=== PATIENT | female | born 1945 | race Caucasian/White ===

== ENCOUNTER → 2019-05-31 | Outpatient (CLI) | payer BC, MEDICARE ==
[~2019-05-31] MED LIST: ASCO500T9 PO; ASPI-1012 PO; CALC-1038 PO; HYDR-2132 PO; IBAN150T16 PO; MVIT PO
== END | disposition home or self-care (01) ==
LOC: RAH 10:58
PROVIDERS: ATTEND Internal Medicine Gastroenterology
DX: R14.0 Abdominal distension (gaseous) (principal); Z87.891 Personal history of nicotine dependence; M19.90 Unspecified osteoarthritis, unspecified site; Z90.710 Acquired absence of both cervix and uterus; Z98.890 Other specified postprocedural states
CPT/HCPCS: 78264; A9541

== ENCOUNTER → 2021-10-13 | Outpatient (CLI) | payer BC, MEDICARE ==
[~2021-10-13] MED LIST changes: +ASCO500T20 PO; -ASCO500T9 PO
== END | disposition home or self-care (01) ==
LOC: RAH 13:31
PROVIDERS: ATTEND Orthopaedic Surgery
DX: S83.282A Other tear of lateral meniscus, current injury, left knee, initial encounter (principal); M17.12 Unilateral primary osteoarthritis, left knee; X58.XXXA Exposure to other specified factors, initial encounter; Y93.89 Activity, other specified; Y92.89 Other specified places as the place of occurrence of the external cause; Y99.8 Other external cause status
CPT/HCPCS: 73721

== ENCOUNTER 2021-12-30 07:41 | Day surgery (SDC) | payer BC, MEDICARE ==
[2021-12-28 10:03] LABS: BASOPHILS % (AUTO) 0.7 % (0.0-5.0); EOSINOPHILS % (AUTO) 0.6 % (0.0-8.0); HEMATOCRIT 46.1 % (36-48); LYMPHOCYTES % (AUTO) 26.4 % (21.0-51.0); MEAN CORPUSCULAR HGB CONC 32.3 g/dL (32.0-36.0); MONOCYTES % (AUTO) 10.4 % (3.0-13.0); NEUTROPHILS % (AUTO) 61.3 % (40.0-77.0); PLATELET COUNT (AUTO) 326 K/uL (130-400); RED BLOOD CELL COUNT(AUTO) 4.52 MIL/uL (4.00-5.50); RED CELL DISTRIBUTION WIDTH 13.2 % (11.0-15.5); WHITE BLOOD COUNT (AUTO) 9.7 K/uL (4.8-10.8)
[2021-12-28 10:17] LABS: CREATININE 0.6 mg/dL (0.5-1.5); POTASSIUM 4.3 mmol/L (3.5-5.1)
[2021-12-29 12:02] VITALS: BP 170/88
[~2021-12-30] VITALS: Ht 162.6 cm; Wt 55.7 kg
[2021-12-30] VITALS (17 sets, daily range): BP systolic 142–168; BP diastolic 67–88
[~2021-12-30 07:41] MED LIST changes: +AEC81 PO; -ASPI-1012 PO; -CALC-1038 PO; +CEFAZOLIN SODIUM 1 GM VIAL IVP SCH; +FAMO-136 PO; -HYDR-2132 PO; -IBAN150T16 PO; +VITAMIN B12 IM
[2021-12-30] MEDS ORDERED: LACTATED RINGERS 1000ML 1,000 ML IV ONE (08:23)
[2021-12-30] MEDS ORDERED: CEFAZOLIN SODIUM 2 GM VIAL IV ONE (10:40)
[2021-12-30] MEDS ORDERED: LIDOCAINE PF 100MG/5ML (2%) SYRINGE 5ML ONE (10:41)
[2021-12-30] MEDS ORDERED: PROPOFOL 10 MG/ML 20ML VIAL IV ONE (10:41)
[2021-12-30] MEDS ORDERED: FENTANYL CITRATE PF 50 MCG/1 ML 5ML AMP IV ONE (10:42)
[2021-12-30] MEDS ORDERED: DEXAMETHASONE SOD PHOSPHATE 10MG/ML 1ML VIAL ONE (11:01)
[2021-12-30] MEDS ORDERED: ONDANSETRON 4MG INJ ONE (11:01)
[2021-12-30] MEDS ORDERED: ACET-2079 PO (11:58)
[2021-12-30] MEDS ORDERED: CEPH500B PO (11:58)
[2021-12-30] MEDS ORDERED: MELO-106 PO (11:58)
== END 2021-12-30 13:45 | disposition home or self-care (01) ==
LOC: DAH 07:41
PROVIDERS: ATTEND Orthopaedic Surgery
DX: S83.272A Complex tear of lateral meniscus, current injury, left knee, initial encounter (principal); M94.262 Chondromalacia, left knee; M17.12 Unilateral primary osteoarthritis, left knee; K21.9 Gastro-esophageal reflux disease without esophagitis; M81.0 Age-related osteoporosis without current pathological fracture; M19.90 Unspecified osteoarthritis, unspecified site; Z87.891 Personal history of nicotine dependence; Z98.890 Other specified postprocedural states; Z90.710 Acquired absence of both cervix and uterus; Z72.89 Other problems related to lifestyle; Z79.82 Long term (current) use of aspirin; Z79.899 Other long term (current) drug therapy; W19.XXXA Unspecified fall, initial encounter; Y93.89 Activity, other specified; Y92.89 Other specified places as the place of occurrence of the external cause
CPT/HCPCS: 29881; 36415; 80048; 85025; 87635; A4215; A4221; A4222; A4223; A4649; A4663; A6223; A6450; C9803; J0690 ×2; J1100; J2001; J2405; J2704; J3010; J7120

== ENCOUNTER 2022-01-12 14:21 | Observation (INO) | payer BC, MEDICARE ==
[~2022-01-12] VITALS: Ht 157.5 cm; Wt 50.3 kg
[~2022-01-12 14:21] MED LIST changes: +ACET-2079 PO; -CEFAZOLIN SODIUM 1 GM VIAL IVP SCH; +CEPH500B PO; +MELO-106 PO
[2022-01-12] MEDS ORDERED: NITROGLYCERIN 1GM OINT 1 INCH/1GM TD ONE (14:30)
[2022-01-12 14:48] LABS: BASOPHILS % (AUTO) 0.2 % (0.0-5.0); EOSINOPHILS % (AUTO) 0.3 % (0.0-8.0); HEMATOCRIT 43.3 % (36-48); LYMPHOCYTES % (AUTO) 27.2 % (21.0-51.0); MEAN CORPUSCULAR HEMOGLOBIN 33.8 pg (27.0-33.0); MEAN CORPUSCULAR HGB CONC 33.7 g/dL (32.0-36.0); MEAN CORPUSCULAR VOLUME 100.2 fL (79-99); NEUTROPHILS % (AUTO) 61.9 % (40.0-77.0); PLATELET COUNT (AUTO) 343 K/uL (130-400); RED BLOOD CELL COUNT(AUTO) 4.32 MIL/uL (4.00-5.50); WHITE BLOOD COUNT (AUTO) 14.1 K/uL (4.8-10.8)
[2022-01-12 15:00] LABS: CREATININE 0.7 mg/dL (0.5-1.5); POTASSIUM 3.7 mmol/L (3.5-5.1)
[2022-01-12 15:05] LABS: BILIRUBIN,TOTAL 0.7 mg/dL (0.2-1.0); MAGNESIUM 1.9 mg/dL (1.80-2.40); TOTAL PROTEIN, SERUM 7.5 g/dL (6.0-8.3)
[2022-01-12 15:30] LABS: B-TYPE NATRIURETIC PEPTIDE 35 pg/mL (0-100)
[2022-01-12] MEDS ORDERED: ALBUTEROL 0.083% 2.5 MG/3 ML INH IH PRN (16:00)
[2022-01-12] MEDS ORDERED: NITROGLYCERIN 1GM OINT 1 INCH/1GM TD PRN (16:00)
[2022-01-12] MEDS ORDERED: MORPHINE 2 MG SYG ONE (16:09)
[2022-01-12] MEDS: INSULIN HUMULIN R 100 UNIT/ML 3ML SQ SCH ×2 (16:26→21:00)
[2022-01-12] MEDS ORDERED: MORPHINE 2 MG SYG IVP SCH (16:30)
[2022-01-12 17:18] LABS: APPEARANCE,URINE CLEAR (CLEAR); BILIRUBIN,URINE NEGATIVE (NEGATIVE); COLOR,URINE YELLOW (YELLOW); GLUCOSE, URINE (UA) NEGATIVE (NEGATIVE); KETONES,URINE NEGATIVE (NEGATIVE); LEUKOCYTE ESTERASE ,URINE NEGATIVE (NEGATIVE); NITRATE,URINE NEGATIVE (NEGATIVE); OCCULT BLOOD,URINE NEGATIVE (NEGATIVE); PROTEIN,URINE NEGATIVE (NEGATIVE); UROBILINOGEN,URINE 0.2 mg/dL (0.2-1.0)
[2022-01-12] MEDS: ACETAMINOPHEN 325 MG TAB PO PRN (17:18)
[2022-01-12] MEDS ORDERED: HYDROCODONE/ACETAMINOPHEN 5/325 MG TAB PO PRN (23:30)
[2022-01-13 03:40] VITALS: BP 158/88
[2022-01-13] MEDS: INSULIN HUMULIN R 100 UNIT/ML 3ML SQ SCH ×4 (06:40→21:00)
[2022-01-13 07:14] LABS: BASOPHILS % (AUTO) 0.2 % (0.0-5.0); EOSINOPHILS % (AUTO) 0.4 % (0.0-8.0); HEMATOCRIT 36.8 % (36-48); LYMPHOCYTES % (AUTO) 22.9 % (21.0-51.0); MEAN CORPUSCULAR HGB CONC 34.2 g/dL (32.0-36.0); MEAN CORPUSCULAR VOLUME 99.2 fL (79-99); MONOCYTES % (AUTO) 8.9 % (3.0-13.0); NEUTROPHILS % (AUTO) 66.4 % (40.0-77.0); PLATELET COUNT (AUTO) 285 K/uL (130-400); RED BLOOD CELL COUNT(AUTO) 3.71 MIL/uL (4.00-5.50); RED CELL DISTRIBUTION WIDTH 13.2 % (11.0-15.5); WHITE BLOOD COUNT (AUTO) 10.3 K/uL (4.8-10.8)
[2022-01-13 07:29] LABS: CREATININE 0.4 mg/dL (0.5-1.5); MAGNESIUM 1.9 mg/dL (1.80-2.40); PHOSPHORUS 3.4 mg/dL (2.5-4.9); POTASSIUM 3.8 mmol/L (3.5-5.1)
[2022-01-13 07:30] VITALS: BP 170/80
[2022-01-13] MEDS ORDERED: PANTOPRAZOLE 40 MG TAB DR PO SCH (09:00)
[2022-01-13 11:00] VITALS: BP 185/85
[2022-01-13] MEDS: ASPIRIN 81MG CHEW TAB PO SCH (11:29)
[2022-01-13] MEDS: PANTOPRAZOLE 40 MG/VIAL IVP SCH (11:30)
[2022-01-13] MEDS: ENOXAPARIN SODIUM 30 MG/0.3 ML SQ SCH (11:31)
[2022-01-13] MEDS: LISINOPRIL 5 MG TABLET PO SCH (14:24)
[2022-01-13 16:00] VITALS: BP 134/78
[2022-01-13] MEDS ORDERED: IOHEXOL-350 75 ML VIAL IV ONE (16:51)
[2022-01-13] MEDS: ACETAMINOPHEN 325 MG TAB PO PRN ×2 (17:26→21:43)
[2022-01-13 20:00] VITALS: BP 135/73
[2022-01-14] VITALS: BP 122/72
[2022-01-14 04:00] VITALS: BP 130/75
[2022-01-14 05:41] LABS: BASOPHILS % (AUTO) 0.1 % (0.0-5.0); EOSINOPHILS % (AUTO) 0.4 % (0.0-8.0); HEMATOCRIT 37.5 % (36-48); MEAN CORPUSCULAR HEMOGLOBIN 34.1 pg (27.0-33.0); MEAN CORPUSCULAR HGB CONC 33.9 g/dL (32.0-36.0); MEAN CORPUSCULAR VOLUME 100.8 fL (79-99); MONOCYTES % (AUTO) 10.4 % (3.0-13.0); PLATELET COUNT (AUTO) 303 K/uL (130-400); RED BLOOD CELL COUNT(AUTO) 3.72 MIL/uL (4.00-5.50); RED CELL DISTRIBUTION WIDTH 13.3 % (11.0-15.5); WHITE BLOOD COUNT (AUTO) 9.5 K/uL (4.8-10.8)
[2022-01-14] MEDS: INSULIN HUMULIN R 100 UNIT/ML 3ML SQ SCH ×2 (05:45→11:29)
[2022-01-14 06:27] LABS: ALBUMIN 3.1 g/dL (3.5-5.0); BILIRUBIN,TOTAL 0.6 mg/dL (0.2-1.0); CREATININE 0.5 mg/dL (0.5-1.5); MAGNESIUM 2.1 mg/dL (1.80-2.40); POTASSIUM 3.9 mmol/L (3.5-5.1)
[2022-01-14 08:00] VITALS: BP 108/60
[2022-01-14] MEDS: ASPIRIN 81MG CHEW TAB PO SCH (08:57)
[2022-01-14] MEDS: PANTOPRAZOLE 40 MG/VIAL IVP SCH (08:57)
[2022-01-14] MEDS: LISINOPRIL 5 MG TABLET PO SCH (08:57)
[2022-01-14] MEDS: ENOXAPARIN SODIUM 30 MG/0.3 ML SQ SCH (08:58)
[2022-01-14 10:52] VITALS: BP 119/67
== END 2022-01-14 13:30 | disposition home or self-care (01) ==
LOC: EDH 14:21 → EDHIP 15:57 → 3BH 01-13 03:40
PROVIDERS: ADMIT Internal Medicine Pulmonary Disease; ATTEND Internal Medicine Pulmonary Disease
DX: I24.9 Acute ischemic heart disease, unspecified (principal); Z20.822 Contact with and (suspected) exposure to COVID-19; K21.9 Gastro-esophageal reflux disease without esophagitis; R51.9 Headache, unspecified; D72.829 Elevated white blood cell count, unspecified; Z79.899 Other long term (current) drug therapy; Z98.890 Other specified postprocedural states; Z79.82 Long term (current) use of aspirin; Z90.49 Acquired absence of other specified parts of digestive tract
CPT/HCPCS: 36415 ×3; 71045; 71275; 80048; 80053 ×2; 81003; 82550 ×4; 82948 ×8; 83735 ×3; 83874 ×3; 83880; 84100; 84145; 84484 ×4; 85025 ×3; 85378; 87635; 93005; 93970; 96372 ×2; 96374; 96375; 96376; 97161; 99285; C9113 ×2; G0378 ×44; J1650 ×2; Q9967

== ENCOUNTER → 2022-03-10 | Outpatient (CLI) | payer MEDICARE, OTHER | END | disposition home or self-care (01) | LOC: RAH 12:40 | PROVIDERS: ATTEND Internal Medicine Cardiovascular Disease | DX: Z13.6 Encounter for screening for cardiovascular disorders (principal) | CPT/HCPCS: 75571 ==

== ENCOUNTER → 2022-03-14 | Outpatient (CLI) | payer BC, MEDICARE | END | disposition home or self-care (01) | LOC: SHCH 15:07 | PROVIDERS: ATTEND Internal Medicine Cardiovascular Disease | DX: I36.1 Nonrheumatic tricuspid (valve) insufficiency (principal); I51.7 Cardiomegaly | CPT/HCPCS: 93306 ==

== ENCOUNTER 2022-11-01 23:39 | Emergency (ER) | payer BC, MEDICARE ==
[~2022-11-01] VITALS: Ht 157.5 cm; Wt 54.4 kg
[2022-11-02 00:08] LABS: BASOPHILS % (AUTO) 0.6 % (0.0-5.0); EOSINOPHILS % (AUTO) 0.5 % (0.0-8.0); HEMATOCRIT 35.7 % (36-48); MEAN CORPUSCULAR HEMOGLOBIN 34.6 pg (27.0-33.0); MEAN CORPUSCULAR HGB CONC 33.1 g/dL (32.0-36.0); MEAN CORPUSCULAR VOLUME 104.7 fL (79-99); MONOCYTES % (AUTO) 10.1 % (3.0-13.0); PLATELET COUNT (AUTO) 310 K/uL (130-400); RED BLOOD CELL COUNT(AUTO) 3.41 MIL/uL (4.00-5.50); WHITE BLOOD COUNT (AUTO) 9.3 K/uL (4.8-10.8)
[2022-11-02 00:24] LABS: CREATININE 0.6 mg/dL (0.5-1.5); POTASSIUM 3.3 mmol/L (3.5-5.1)
[2022-11-02 00:29] LABS: ALBUMIN 3.4 g/dL (3.5-5.0); TOTAL PROTEIN, SERUM 6.7 g/dL (6.0-8.3)
[2022-11-02 00:45] LABS: APPEARANCE,URINE CLEAR (CLEAR); BILIRUBIN,URINE NEGATIVE (NEGATIVE); COLOR,URINE LIGHT-YELLOW (YELLOW); GLUCOSE, URINE (UA) NEGATIVE (NEGATIVE); KETONES,URINE 5 mg/dL (NEGATIVE); LEUKOCYTE ESTERASE ,URINE 500 Leu/uL (NEGATIVE); NITRATE,URINE 2+ (NEGATIVE); OCCULT BLOOD,URINE NEGATIVE (NEGATIVE); PROTEIN,URINE NEGATIVE (NEGATIVE); UROBILINOGEN,URINE 0.2 mg/dL (0.2-1.0)
[2022-11-02 00:55] LABS: BACTERIA,URINE FEW /HPF (None Seen); MUCUS,URINE RARE LPF (None Seen); RBC,URINE 0-1 /HPF (0-1); SQUAMOUS EPITHELIAL CELL,UR FEW /HPF (0-2)
[2022-11-02] MEDS ORDERED: LIDOCAINE HCL 1% 20 ML VIAL ONE (02:36)
[2022-11-02] MEDS ORDERED: OCTYL 2-CYANOACRYLATE 1 EACH TP ONE (03:01)
[2022-11-02] MEDS ORDERED: NITROFURANTOIN MONOHYD/M-CRYST 100 MG CAPSULE PO ONE (03:30)
[2022-11-02] MEDS ORDERED: TETANUS/DIPHTHERIA TOXOID [ADULT] 0.5 ML VIAL IM ONE (03:30)
[2022-11-02] MEDS ORDERED: MACR100 PO (03:33)
[2022-11-02 04:30] VITALS: BP 132/74
== END 2022-11-02 04:46 | disposition home or self-care (01) ==
LOC: EDH 23:39
DX: S61.411A Laceration without foreign body of right hand, initial encounter (principal); E78.00 Pure hypercholesterolemia, unspecified; I10 Essential (primary) hypertension; Z79.1 Long term (current) use of non-steroidal anti-inflammatories (NSAID); Z79.82 Long term (current) use of aspirin; Z90.49 Acquired absence of other specified parts of digestive tract; W18.39XA Other fall on same level, initial encounter; Y93.89 Activity, other specified; Y92.89 Other specified places as the place of occurrence of the external cause; Y99.8 Other external cause status
CPT/HCPCS: 12001; 36415; 71045; 73130; 80053; 81001; 82550; 84484; 85025; 87077; 87088; 87186; 90471; 90714; 93005

== ENCOUNTER → 2025-01-28 | Outpatient (CLI) | payer BC, MEDICARE ==
[~2025-01-28] MED LIST changes: -ACET-2079 PO; -AEC81 PO; +ASPI-891 PO; +BUSP7.5T7 PO; -CEPH500B PO; +CYCL-309 PO; +DOCU-116 PO; +ESCI20TA38 PO; +ESOM20CA51 PO; +GABA100C PO; +HYDR-4060 PO; -MELO-106 PO; +METO-408 PO; +MULT-1367 PO; -MVIT PO; -VITAMIN B12 IM
--- NOTE | 2025-02-03 15:22 | HMCIMG ---
STUDY PERFORMED: BD Bone Density DEXA Axial Skeleton TECHNIQUE: [employer] Dual Energy X-ray absorptiometry (DEXA) COMPARISON: None available. FINDINGS: Lumbar Spine L1-L4 Density(g/cm2): 1.148 T-score: 0.9 Z-score: 3.5 Left forearm Density(g/cm2): 0.537 T-score: -2.6 Z-score: 0.4 INTERPRETATION: The bone mineral density in the lumbar spine is in the normal range. Findings may BE falsely elevated due to accentuated lateral curvature and endplate sclerosis The bone mineral density of the left forearm is in the osteoporosis range. COMMENTS: T-scores are a means of evaluating bone mineral density relative to young adult population and are defined as the number of standard deviations of the mean. T-scores at or above -1.0 are considered normal. T-scores between -1.0 and -2.5 are consistent with osteopenia. T-scores at or below -2.5 are consistent with osteoporosis. T-score values below -2.0 are thought to be associated with an increased risk of fracture. Z-scores are related to age-matched controls. The study does not distinguish osteoporosis from other causes of decreased bone density such as osteomalacia or multiple myeloma. Therefore, if clinically indicated or Z-scores are less than -2.0, additional metabolic studies may be appropriate. RECOMMENDATIONS: National Osteoporosis Foundation (NOF) guidelines recommend initiating therapy to reduce fracture risk in women with BMD: T-Score below -2 SD T-Score Below -1.5 with other risks factors present NOF guidelines recommend all people with T score of -2.5 and below (osteoporosis) consider taken osteoporosis medication. The NOF recommends adults under age 50 need 1,000 mg of calcium and 400-800 IU of vitamin D daily. Adults 50 and over need 1,200 mg of calcium and 800-1000 IU of vitamin D daily. Effective therapies for the prevention of osteoporosis include bisphosphonates (Fosamax and Actonel) and Evista. Hormone therapy may be an option based on review of risks and benefit of treatment. People with diagnosed cases of osteoporosis or at high risk for fracture should have regular bone mineral density tests. For patients eligible for Medicare, routine testing is allowed once every 2 years. The testing frequency can be increased to one year for patients who have rapidly progressing disease, those who are receiving or discontinuing medical therapy to restore bone mass, or have additional risk factors. /[place]
== END | disposition home or self-care (01) ==
LOC: RAH 10:44
PROVIDERS: ATTEND Internal Medicine Endocrinology, Diabetes & Metabolism
DX: M81.0 Age-related osteoporosis without current pathological fracture (principal); M85.832 Other specified disorders of bone density and structure, left forearm
CPT/HCPCS: 77080